=== PATIENT | female | born 1950 | race American Indian/Alaskan Native ===

== ENCOUNTER 2019-05-28 11:48 | Emergency (ER) | payer MEDICARE ==
[2019-05-28 12:02] VITALS: BP 164/97
--- NOTE | 2019-05-28 12:03 | Emergency Department Report ---
ED Recheck HPI - General Chief Complaint: Pain General Stated Complaint: DIABETIC PAIN Time Seen by Provider: 05/28/19 11:54 Source: patient Mode of arrival: Ambulatory Limitations: Physical Limitation - History of Present Illness MD Complaint: medication refill request Returns Today for: request for prescription Symptoms Since Prior Visit: worsening pain Context: ran out of medication Associated Symptoms: none - Related Data Previous Rx's Medication Instructions Recorded Last Taken Type DULoxetine [Cymbalta] 60 mg PO QDAY 15 Days #30 capsule 05/28/19 Unknown Rx Allergies Allergy/AdvReac Type Severity Reaction Status Date / Time latex Allergy Rash Verified 05/28/19 11:49 tape Allergy Rash Uncoded 05/28/19 11:49 ED Review of Systems ROS: Stated complaint: DIABETIC PAIN Other details as noted in HPI Constitutional: denies: chills Respiratory: denies: cough Cardiovascular: denies: chest pain, palpitations, edema, syncope Gastrointestinal: denies: abdominal pain, nausea, vomiting, diarrhea Musculoskeletal: other (nerve pain and needs refill on cymbalta) Skin: denies: rash Neurological: paresthesias, confusion. denies: headache, weakness, abnormal gait Psychiatric: denies: anxiety ED Past Medical Hx - Past Medical History Previous Medical History?: Yes Hx Diabetes: Yes Hx of Cancer: Yes Hx Arthritis: Yes (Rheumatoid) Hx Asthma: Yes Hx COPD: Yes Additional medical history: Fibromyalgia, Pulmonary problems - Surgical History Past Surgical History?: Yes Additional Surgical History: Stomach cancer surgery, Hysterectomy @ age 29,. Tubaligation, sinus surgery - Family History Family history: hypertension - Social History Smoking Status: Never Smoker Substance Use Type: None - Medications Home Medications: Home Medications Medication Instructions Recorded Confirmed Last Taken Type DULoxetine [Cymbalta] 60 mg PO QDAY 15 Days #30 capsule 05/28/19 Unknown Rx ED Physical Exam - General Limitations: Physical Limitation General appearance: alert, in no apparent distress - Head Head exam: Present: atraumatic, normocephalic - Eye Eye exam: Present: normal appearance, PERRL, EOMI Pupils: Present: normal accommodation - ENT ENT exam: Present: normal exam, normal orophraynx, mucous membranes moist - Neck Neck exam: Present: normal inspection, full ROM. Absent: tenderness - Respiratory Respiratory exam: Present: normal lung sounds bilaterally. Absent: respiratory distress - Cardiovascular Cardiovascular Exam: Present: regular rate, normal rhythm, normal heart sounds - GI/Abdominal GI/Abdominal exam: Present: soft. Absent: distended, tenderness - Extremities Exam Extremities exam: Present: normal inspection, full ROM, normal capillary refill. Absent: tenderness, pedal edema - Back Exam Back exam: Present: normal inspection, full ROM - Neurological Exam Neurological exam: Present: alert, oriented X3, normal gait - Psychiatric Psychiatric exam: Present: normal affect, normal mood - Skin Skin exam: Present: warm, dry, intact, normal color. Absent: rash ED Course Vital Signs 05/28/19 05/28/19 11:49 12:01 Temperature 98.7 F Pulse Rate 85 Respiratory 20 Rate Blood Pressure 173/107 Blood Pressure 164/97 [Right] O2 Sat by Pulse 98 Oximetry - Reevaluation(s) Reevaluation #1: 05/28/19 12:40 Patient stable and here for Cymbalta refill. ED Recheck MDM - Differential Diagnosis Prescription Refill(s) - Medical Decision Making Patient here for refill on meds and asymptomatic. Refill on cymbalta given with instructions to follow up with PCP at [facility] Critical care attestation.: If time is entered above; I have spent that time in minutes in the direct care of this critically ill patient, excluding procedure time. ED Disposition Clinical Impression: Encounter for medication refill Hypertension Qualifiers: Hypertension type: essential hypertension Qualified Code(s): I10 - Essential (primary) hypertension Disposition: TO HOME OR SELFCARE Is pt being admited?: No Does the pt Need Aspirin: No Condition: Stable Instructions: Duloxetine (By mouth), Diabetic Neuropathy (ED), Hypertension (ED) Additional Instructions: follow up with PCP in 2 days see referral for alternative pcp as requested. If condition worsen, return to ED Keep a log of blood pressure and bring to PCP visit Continue to take norvasc as prescribed by pcp Your blood pressure was mildly elevated today so, monitor and if greater that 170/100 go to closest ed Prescriptions: DULoxetine [Cymbalta] 60 mg PO QDAY 15 Days #30 capsule Referrals: GERTRUDIS BA MD [Primary Care Provider] - 05/30/19 LUDIVINA IBANEZ MD [Staff Physician] - 2-3 Days Time of Disposition: 12:43
== END 2019-05-28 13:13 | disposition home or self-care (01) ==
LOC: ED 11:48
DX: I10 Essential (primary) hypertension (principal); M79.7 Fibromyalgia; E11.9 Type 2 diabetes mellitus without complications; J44.9 Chronic obstructive pulmonary disease, unspecified; M06.9 Rheumatoid arthritis, unspecified; Z76.0 Encounter for issue of repeat prescription; Z85.9 Personal history of malignant neoplasm, unspecified; Z86.711 Personal history of pulmonary embolism; Z90.710 Acquired absence of both cervix and uterus; Z98.51 Tubal ligation status; Z79.899 Other long term (current) drug therapy; Z88.8 Allergy status to other drugs, medicaments and biological substances; Z91.040 Latex allergy status

== ENCOUNTER 2021-05-20 19:39 | Emergency (ER) | payer MEDICARE ==
[2021-05-20 20:38] LABS: Basophils % (Auto) 0.5 % (0.0-1.8); Eosinophils # (Auto) 0.2 K/mm3 (0.0-0.4); Eosinophils % (Auto) 3.3 % (0.0-4.3); Hematocrit 35.9 % (30.3-42.9); Hemoglobin 12.1 gm/dl (10.1-14.3); Lymphocytes # (Auto) 1.8 K/mm3 (1.2-5.4); Lymphocytes % (Auto) 26.9 % (13.4-35.0); Mean Corpuscular HGB Conc 34 % (30-34); Mean Corpuscular Volume 90 fl (79-97); Monocytes # (Auto) 0.4 K/mm3 (0.0-0.8); Monocytes % (Auto) 5.5 % (0.0-7.3); Platelet Count 384 K/mm3 (140-440); Red Blood Count 3.98 M/mm3 (3.65-5.03); Red Cell Distribution Width 13.6 % (13.2-15.2)
[2021-05-20 21:08] LABS: Alanine Aminotransferase 16 units/L (7-56); Albumin 4.1 g/dL (3.9-5); Blood Urea Nitrogen 15 mg/dL (7-17); Calcium 9.4 mg/dL (8.4-10.2); Hemolysis Index 3
[2021-05-20 21:10] LABS: BUN/Creatinine Ratio 21
--- NOTE | 2021-05-20 21:45 | XRay Report ---
CHEST 2 VIEWS INDICATION / CLINICAL INFORMATION: sob. COMPARISON: None available. FINDINGS: SUPPORT DEVICES: None. HEART / MEDIASTINUM: No significant abnormality. LUNGS / PLEURA: No significant pulmonary or pleural abnormality. No pneumothorax. ADDITIONAL FINDINGS: No significant additional findings. IMPRESSION: 1. No acute findings. Signer Name: Justice Brandon MD Signed: 05/20/2021 9:41 PM Workstation Name: [id number]
[2021-05-20] MEDS ORDERED: oxyCODONE /ACETAMINOPHEN 5-325MG TAB PO ONE (22:15)
--- NOTE | 2021-05-20 22:17 | Emergency Department Report ---
ED Fall HPI - General Chief Complaint: Fall Stated Complaint: FELL/LEGS/KNEE SWELLING Time Seen by Provider: 05/20/21 21:57 Source: patient Mode of arrival: Ambulatory Limitations: No Limitations - History of Present Illness Initial Comments: 70-year-old female with a past medical history of hypertension, rheumatoid arthritis, asthma, diabetes, fibromyalgia, stomach cancer in the past, and chronic back pain presents to the hospital complaining of 3 falls in the past week. Patient states he was ambulating with a cane and fell forward and was able to stop herself. She denies preceding lightheadedness or near syncope. Because of the falls she has had worsening lower back pain, bilateral hip pain, and right thigh pain. Patient also states she has bilateral lower extremity edema which is new. She denies chest pain or shortness of breath. She also denies head injury or LOC. Patient takes Percocet 10 mg for chronic back pain. She states she received an MRI of her spine approximately 2 weeks ago as part of her outpatient work-up. Patient denies urinary incontinence but states when she has to go to the bathroom she also urinates less because she cannot get to the bathroom in time. This has been ongoing for several months and is unchanged. Patient presents here today with a walker - Related Data Previous Rx's Medication Instructions Recorded Last Taken Type DULoxetine [Cymbalta] 60 mg PO QDAY 15 Days #30 capsule 05/28/19 Unknown Rx Allergies Allergy/AdvReac Type Severity Reaction Status Date / Time latex Allergy Rash Verified 05/28/19 11:49 tape Allergy Rash Uncoded 05/28/19 11:49 ED Review of Systems ROS: Stated complaint: FELL/LEGS/KNEE SWELLING Other details as noted in HPI Comment: All other systems reviewed and negative ED Past Medical Hx - Past Medical History Previous Medical History?: Yes Hx Diabetes: Yes Hx Arthritis: Yes (Rheumatoid) Hx Asthma: Yes Hx COPD: Yes (Pt denies) Additional medical history: Fibromyalgia - Surgical History Past Surgical History?: Yes Additional Surgical History: Stomach cancer surgery, Hysterectomy @ age 29,. Tubaligation, sinus surgery - Social History Smoking Status: Never Smoker Substance Use Type: None - Medications Home Medications: Home Medications Medication Instructions Recorded Confirmed Last Taken Type DULoxetine [Cymbalta] 60 mg PO QDAY 15 Days #30 capsule 05/28/19 Unknown Rx ED Physical Exam - General Limitations: No Limitations, Physical Limitation - Other Other exam information: General: No acute distress Head: Atraumatic Eyes: normal appearance ENT: Moist mucous membranes Neck: Normal appearance, no midline tenderness Chest: Clear to auscultation bilaterally CV: Regular rate and rhythm Abdomen: Soft, normal bowel sounds, nontender, nondistended, no rebound or guarding Back: Normal inspection, generalized lumbar midline tenderness and paraspinal muscle tenderness Extremity: Normal inspection, full range of motion, right anterior thigh muscular tenderness. Minimal pain with movement of bilateral hips. Bilateral knee swelling without warmth or erythema. Bilateral 1+ pitting leg edema without isolated calf tenderness or leg asymmetry. 2+ DP pulses Neuro: Alert O x 3, no facial asymmetry, speech clear, no gross motor sensory deficit Psych: Appropriate behavior Skin: No rash ED Course Vital Signs 05/20/21 20:12 Temperature 98.3 F Pulse Rate 89 Respiratory 19 Rate Blood Pressure 180/79 O2 Sat by Pulse 99 Oximetry ED Medical Decision Making - Lab Data Result diagrams: 05/20/21 20:22 05/20/21 20:22 Lab Results 05/20/21 05/20/21 Range/Units 20:22 20:22 WBC 6.6 (4.5-11.0) K/mm3 RBC 3.98 (3.65-5.03) M/mm3 Hgb 12.1 (10.1-14.3) gm/dl Hct 35.9 (30.3-42.9) % MCV 90 (79-97) fl MCH 30 (28-32) pg MCHC 34 (30-34) % RDW 13.6 (13.2-15.2) % Plt Count 384 (140-440) K/mm3 Lymph % (Auto) 26.9 (13.4-35.0) % [place] % (Auto) 5.5 (0.0-7.3) % Eos % (Auto) 3.3 (0.0-4.3) % Baso % (Auto) 0.5 (0.0-1.8) % Lymph # (Auto) 1.8 (1.2-5.4) K/mm3 [place] # (Auto) 0.4 (0.0-0.8) K/mm3 Eos # (Auto) 0.2 (0.0-0.4) K/mm3 Baso # (Auto) 0.0 (0.0-0.1) K/mm3 Seg Neutrophils % 63.8 (40.0-70.0) % Seg Neutrophils # 4.2 (1.8-7.7) K/mm3 Sodium 140 (137-145) mmol/L Potassium 3.9 (3.6-5.0) mmol/L Chloride 104.0 (98-107) mmol/L Carbon Dioxide 26 (22-30) mmol/L Anion Gap 14 mmol/L BUN 15 (7-17) mg/dL Creatinine 0.7 (0.6-1.2) mg/dL Estimated GFR > 60 ml/min BUN/Creatinine Ratio 21 % Glucose 144 H (65-100) mg/dL Calcium 9.4 (8.4-10.2) mg/dL Total Bilirubin 0.20 (0.1-1.2) mg/dL AST 14 (5-40) units/L ALT 16 (7-56) units/L Alkaline Phosphatase 117 (35-129) units/L Troponin T < 0.010 (0.00-0.029) ng/mL Total Protein 8.3 H (6.3-8.2) g/dL Albumin 4.1 (3.9-5) g/dL Albumin/Globulin Ratio 1.0 % - EKG Data -: EKG Interpreted by Pr EKG shows normal: sinus rhythm, intervals (qtc 435), QRS complexes (qrsd 109), ST-T waves (no stemi/t wve inv) Rate: normal (77) - Radiology Data Radiology results: report reviewed (Chest x-ray: No acute finding) CHEST 2 VIEWS INDICATION / CLINICAL INFORMATION: sob. COMPARISON: None available. FINDINGS: SUPPORT DEVICES: None. HEART / MEDIASTINUM: No significant abnormality. LUNGS / PLEURA: No significant pulmonary or pleural abnormality. No pneumothorax. ADDITIONAL FINDINGS: No significant additional findings. IMPRESSION: 1. No acute findings LUMBAR SPINE 2 VIEWS INDICATION / CLINICAL INFORMATION: pain after fall, chronic pain. COMPARISON: None available. FINDINGS: VERTEBRAE: No acute fracture. No significant malalignment. DISC SPACES / FACET JOINTS:There is degenerative facet disease at L5-S1. PARASPINAL SOFT TISSUES:No significant abnormality. ADDITIONAL FINDINGS: None. BILATERAL HIP 2 VIEW(S) INDICATION / CLINICAL INFORMATION: pain after fall COMPARISON: None available. FINDINGS: BONES / JOINT(S): No acute fracture or subluxation. No significant arthritis. SOFT TISSUES: No significant abnormality. ADDITIONAL FINDINGS: None. DUPLEX DOPPLER LOWER EXTREMITY VEINS, BILATERAL INDICATION / CLINICAL INFORMATION: b/l leg swelling. TECHNIQUE: Duplex doppler imaging was performed through the veins of both lower extremities using venous compression and other maneuvers. COMPARISON: None available. FINDINGS: RIGHT COMMON FEMORAL VEIN: Negative. RIGHT FEMORAL VEIN: Negative. RIGHT POPLITEAL VEIN: Negative. RIGHT CALF VEINS: Negative. LEFT COMMON FEMORAL VEIN: Negative. LEFT FEMORAL VEIN: Negative. LEFT POPLITEAL VEIN: Negative. LEFT CALF VEINS: Negative. ADDITIONAL FINDINGS: None. IMPRESSION: 1. No sonographic evidence for DVT in either lower extremity. - Medical Decision Making 70-year female presents to the hospital after having several falls this week. Patient has a history of chronic pain including back pain, joint pain and swelling, and requiring a cane and sometimes a walker to ambulate. Patient has a pain specialist and is undergoing outpatient work-up for ongoing chronic back pain. No reports of increased weakness or urinary incontinence. Patient able to ambulate with a walker in the ED. X-rays do not reveal any acute abnormality. Bilateral Dopplers for leg edema do not reveal acute DVT. No chest x-ray findings of CHF and no laboratory findings of liver or renal failure. Patient decided p.o. Percocet here in the ED. Patient will be d ischarged to follow-up with her physicians for continued outpatient work-up Critical Care Time: No Critical care attestation.: If time is entered above; I have spent that time in minutes in the direct care of this critically ill patient, excluding procedure time. ED Disposition Clinical Impression: Frequent falls, Chronic pain, Bilateral edema of lower extremity Disposition: 01 HOME / SELF CARE / HOMELESS Is pt being admited?: No Does the pt Need Aspirin: No Condition: Stable Instructions: Fall Prevention in the Home, Adult, [id number], Chronic Pain, Adult, Edema Additional Instructions: Continue current medications. Follow-up with your doctor or doctor/clinic provided. Return if symptoms worsen as indicated by your discharge instructions. Referrals: PRIMARY CARE, [Primary Care Provider] - 3-5 Days
--- NOTE | 2021-05-20 23:13 | XRay Report ---
LUMBAR SPINE 2 VIEWS INDICATION / CLINICAL INFORMATION: pain after fall, chronic pain. COMPARISON: None available. FINDINGS: VERTEBRAE: No acute fracture. No significant malalignment. DISC SPACES / FACET JOINTS:There is degenerative facet disease at L5-S1. PARASPINAL SOFT TISSUES:No significant abnormality. ADDITIONAL FINDINGS: None. Signer Name: Devon Hoover DO Signed: 05/20/2021 11:09 PM Workstation Name: [id number]
--- NOTE | 2021-05-20 23:13 | XRay Report ---
BILATERAL HIP 2 VIEW(S) INDICATION / CLINICAL INFORMATION: pain after fall COMPARISON: None available. FINDINGS: BONES / JOINT(S): No acute fracture or subluxation. No significant arthritis. SOFT TISSUES: No significant abnormality. ADDITIONAL FINDINGS: None. Signer Name: Devon Hoover DO Signed: 05/20/2021 11:08 PM Workstation Name: [id number]
--- NOTE | 2021-05-21 00:07 | Vascular Lab Report ---
DUPLEX DOPPLER LOWER EXTREMITY VEINS, BILATERAL INDICATION / CLINICAL INFORMATION: b/l leg swelling. TECHNIQUE: Duplex doppler imaging was performed through the veins of both lower extremities using rajinder ous compression and other maneuvers. COMPARISON: None available. FINDINGS: RIGHT COMMON FEMORAL VEIN: Negative. RIGHT FEMORAL VEIN: Negative. RIGHT POPLITEAL VEIN: Negative. RIGHT CALF VEINS: Negative. LEFT COMMON FEMORAL VEIN: Negative. LEFT FEMORAL VEIN: Negative. LEFT POPLITEAL VEIN: Negative. LEFT CALF VEINS: Negative. ADDITIONAL FINDINGS: None. IMPRESSION: 1. No sonographic evidence for DVT in either lower extremity. Signer Name: Devon Hoover DO Signed: 05/21/2021 12:03 AM Workstation Name: [id number]
[2021-05-21 01:58] VITALS: BP 141/95
--- NOTE | 2021-05-21 11:03 | Electrocardiograph Report ---
[facility] Test Date: 2021-05-20 Test Time: 20:51:47 Pat Name: MARTINA HANSEN Department: Room: Gender: F [employer] Engineer: [id number] : 1950 Requested By: SEGUN YI Order Number: [id number] Reading MD: Moses Moy Measurements Intervals [place] Rate: 77 P: 30 ND: 149 QRS: -9 QRSD: 109 T: 41 QT: 384 QTc: 435 Interpretive Statements Sinus rhythm No previous ECG available for comparison Electronically Signed On 05-21-2021 11:03:14 EDT by Moses Moy
== END 2021-05-21 01:53 | disposition home or self-care (01) ==
LOC: ED 19:39
DX: G89.29 Other chronic pain (principal); M54.50 Low back pain, unspecified; R60.0 Localized edema; E11.8 Type 2 diabetes mellitus with unspecified complications; M19.90 Unspecified osteoarthritis, unspecified site; J45.909 Unspecified asthma, uncomplicated; J44.9 Chronic obstructive pulmonary disease, unspecified; M79.7 Fibromyalgia; Z91.81 History of falling; Z90.710 Acquired absence of both cervix and uterus; Z98.890 Other specified postprocedural states; Z91.040 Latex allergy status; Z91.048 Other nonmedicinal substance allergy status
CPT/HCPCS: 36415; 71046; 72100; 73521; 80053; 84484; 85025; 93005; 93970; 99284

== ENCOUNTER 2022-03-05 12:29 | Emergency (ER) | payer MEDICARE ==
[2022-03-05 13:04] VITALS: BP 160/89
[2022-03-05] MEDS ORDERED: dexAMETHasone 4 MG/ML VIAL IM ONE (13:37)
--- NOTE | 2022-03-05 13:37 | Emergency Department Report ---
ED General Adult HPI - General Chief complaint: Fall Stated complaint: MULTIPLE FALLS PUI?: No Time Seen by Provider: 03/05/22 13:04 Source: patient Mode of arrival: Ambulatory Limitations: No Limitations - History of Present Illness Initial comments: 71 yo comes to ER with b knee pain. This pain is chronic in nature. No new fall or trauma. She has fallen in the past which has caused her a/c pain. PT is on pain meds at home but comes to ER requesting decadron IM because this is all she finds helps her pain when her knees "flare." Pt does have hx arthritis/fibromyalgia No fever or chills. no cp no sob -: Gradual, days(s) Location: lower extremity Severity scale (0 -10): 3 Quality: aching Consistency: constant Improves with: immobilization Worsens with: movement Associated Symptoms: denies other symptoms - Related Data Previous Rx's Medication Instructions Recorded Last Taken Type DULoxetine [Cymbalta] 60 mg PO QDAY 15 Days #30 capsule 05/28/19 Unknown Rx methylPREDNISolone [Medrol 4MG 4 mg PO FS #1 tab.ds.pk 03/05/22 Unknown Rx DOSEPAK (21 tabs)] Allergies Allergy/AdvReac Type Severity Reaction Status Date / Time latex Allergy Rash Verified 03/05/22 13:04 tape Allergy Rash Uncoded 03/05/22 13:04 ED Review of Systems ROS: Stated complaint: MULTIPLE FALLS Other details as noted in HPI Comment: All other systems reviewed and negative ED Past Medical Hx - Past Medical History Previous Medical History?: Yes Hx Diabetes: Yes Hx Arthritis: Yes (Rheumatoid) Hx Asthma: Yes Hx COPD: Yes (Pt denies) Additional medical history: Fibromyalgia - Surgical History Past Surgical History?: Yes Additional Surgical History: Stomach cancer surgery, Hysterectomy @ age 29,. Tubaligation, sinus surgery - Family History Family history: no significant - Social History Smoking Status: Never Smoker Substance Use Type: None - Medications Home Medications: Home Medications Medication Instructions Recorded Confirmed Last Taken Type DULoxetine [Cymbalta] 60 mg PO QDAY 15 Days #30 capsule 05/28/19 Unknown Rx methylPREDNISolone [Medrol 4MG 4 mg PO FS #1 tab.ds.pk 03/05/22 Unknown Rx DOSEPAK (21 tabs)] ED Physical Exam - General Limitations: No Limitations General appearance: alert, in no apparent distress - Head Head exam: Present: atraumatic, normocephalic - Eye Eye exam: Present: normal appearance - ENT ENT exam: Present: mucous membranes moist - Neck Neck exam: Present: normal inspection - Respiratory Respiratory exam: Present: normal lung sounds bilaterally. Absent: respiratory distress - Cardiovascular Cardiovascular Exam: Present: regular rate, normal rhythm. Absent: systolic murmur, diastolic murmur, rubs, gallop - GI/Abdominal GI/Abdominal exam: Present: soft, normal bowel sounds - Extremities Exam Extremities exam: Present: normal inspection - Back Exam Back exam: Present: normal inspection - Neurological Exam Neurological exam: Present: alert, oriented X3 - Psychiatric Psychiatric exam: Present: normal affect, normal mood - Skin Skin exam: Present: warm, dry, intact, normal color. Absent: rash ED Course Vital Signs 03/05/22 13:02 Temperature 98.6 F Pulse Rate 90 Respiratory 18 Rate Blood Pressure 160/89 [Left] O2 Sat by Pulse 100 Oximetry ED Medical Decision Making - Medical Decision Making Vital Signs 03/05/22 13:02 Temperature 98.6 F Pulse Rate 90 Respiratory 18 Rate Blood Pressure 160/89 [Left] O2 Sat by Pulse 100 Oximetry medicated with decadron 8 mg IM pt ambulatory neuro vasc intact plus 2 DP bilateral pain reproducible with movement dc home with dc plan of care including diet, meds, activity and follow up. Pt verbalizes understanding of plan of care. - Differential Diagnosis a/c pain Critical care attestation.: If time is entered above; I have spent that time in minutes in the direct care of this critically ill patient, excluding procedure time. ED Disposition Clinical Impression: Knee pain, Chronic pain Disposition: 01 HOME / SELF CARE / HOMELESS Is pt being admited?: No Does the pt Need Aspirin: No Condition: Stable Instructions: Joint Pain, [id number] Additional Instructions: FOLLOW UP WITH [facility]TH[facility] MED ORDERED TODAY CONTINUE HOME MEDS Prescriptions: methylPREDNISolone [Medrol 4MG DOSEPAK (21 tabs)] 4 mg PO FS #1 tab.ds.pk Referrals: BARTOLO RAMIREZ MD [Staff Physician] - 3-5 Days Forms: Work/School Release Form(ED) Time of Disposition: 13:47
== END 2022-03-05 15:04 | disposition home or self-care (01) ==
LOC: ED 12:29
DX: G89.29 Other chronic pain (principal); M25.561 Pain in right knee; M25.562 Pain in left knee; E11.9 Type 2 diabetes mellitus without complications; M19.90 Unspecified osteoarthritis, unspecified site; J44.9 Chronic obstructive pulmonary disease, unspecified; M79.7 Fibromyalgia; Z90.710 Acquired absence of both cervix and uterus; Z98.51 Tubal ligation status; Z91.040 Latex allergy status; Z79.899 Other long term (current) drug therapy
CPT/HCPCS: 96372; 99282; J1100

== ENCOUNTER 2022-04-02 13:33 | Emergency (ER) | payer MEDICARE ==
--- NOTE | 2022-04-02 15:41 | XRay Report ---
CHEST 2 VIEWS INDICATION / CLINICAL INFORMATION: Syncope. COMPARISON: 05/20/21 FINDINGS: SUPPORT DEVICES: None. HEART / MEDIASTINUM: No significant abnormality. LUNGS / PLEURA: No significant pulmonary or pleural abnormality. No pneumothorax. ADDITIONAL FINDINGS: No significant additional findings. IMPRESSION: 1. No acute findings. Signer Name: Bg Ramirez MD Signed: 04/02/2022 3:36 PM Workstation Name: [id number]
[2022-04-02 17:25] LABS: Basophils % (Auto) 0.4 % (0.0-1.8); Eosinophils # (Auto) 0.1 K/mm3 (0.0-0.4); Eosinophils % (Auto) 1.2 % (0.0-4.3); Hematocrit 31.8 % (30.3-42.9); Hemoglobin 10.6 gm/dl (10.1-14.3); Lymphocytes # (Auto) 1.8 K/mm3 (1.2-5.4); Lymphocytes % (Auto) 28.9 % (13.4-35.0); Mean Corpuscular HGB Conc 34 % (30-34); Mean Corpuscular Volume 87 fl (79-97); Monocytes # (Auto) 0.3 K/mm3 (0.0-0.8); Monocytes % (Auto) 4.9 % (0.0-7.3); Platelet Count 437 K/mm3 (140-440); Red Blood Count 3.65 M/mm3 (3.65-5.03)
[2022-04-02 17:53] LABS: Creatine Kinase MB 1.4 ng/mL (0.0-4.0)
[2022-04-02 17:56] LABS: Alanine Aminotransferase 14 units/L (7-56); Albumin 4.1 g/dL (3.9-5); Blood Urea Nitrogen 15 mg/dL (7-17); Calcium 9.3 mg/dL (8.4-10.2); Hemolysis Index 2
[2022-04-02 17:59] LABS: BUN/Creatinine Ratio 21
[2022-04-03 04:36] VITALS: BP 175/87
[2022-04-03] MEDS ORDERED: dexAMETHasone 4 MG/ML VIAL IM ONE (13:16)
[2022-04-03] MEDS ORDERED: oxyCODONE /ACETAMINOPHEN 5-325MG TAB PO ONE (13:16)
--- NOTE | 2022-04-03 13:18 | Emergency Department Report ---
ED General Adult HPI - General Chief complaint: Syncope Stated complaint: HIP PAIN PUI?: No Time Seen by Provider: 04/03/22 13:15 Source: patient Mode of arrival: Ambulatory Limitations: No Limitations - History of Present Illness Initial comments: 71 YO HAS NOW BEEN IN ER 24 HOURS - IN WAITING ROOM. SHE HAS A/C BACK PAIN SHE HAD EPIDURAL SCHEDULED BUT TANGELA CANCELLED IT SHE IS ON PERCOCET AT HOME FOR THE PAIN SHE INITALLY REFUSED TO COME TO FAST TRACK SHE STATES SHE HAS BEEN HERE 2 OTHER TIMES AND SHE WANTED TO GO TO MAIN PER DR JESSICA SHE NEEDED TO GO TO [facility] OR GO A[facility]; PT AGREED WITH [facility] NO CP NO SOB NO FEVER/CHILLS SHE IS IN HER USUAL STATE OF HEALTH AND IS FRUSTRATED WITH HER BACLK AND LEG PAIN AMBULATORY AND NEURO INTACT -: Gradual, year(s) Severity scale (0 -10): 10 Associated Symptoms: denies other symptoms - Related Data Previous Rx's Medication Instructions Recorded Last Taken Type DULoxetine [Cymbalta] 60 mg PO QDAY 15 Days #30 capsule 05/28/19 Unknown Rx predniSONE [Deltasone] 20 mg PO DAILY #5 tablet 04/03/22 Unknown Rx Allergies Allergy/AdvReac Type Severity Reaction Status Date / Time latex Allergy Rash Verified 04/02/22 14:52 tape Allergy Rash Uncoded 04/02/22 14:52 ED Review of Systems ROS: Stated complaint: HIP PAIN Other details as noted in HPI Comment: All other systems reviewed and negative ED Past Medical Hx - Past Medical History Previous Medical History?: Yes Hx Diabetes: Yes Hx Arthritis: Yes (Rheumatoid) Hx Asthma: Yes Hx COPD: Yes (Pt denies) Additional medical history: Fibromyalgia - Surgical History Past Surgical History?: Yes Additional Surgical History: Stomach cancer surgery, Hysterectomy @ age 29,. Tubaligation, sinus surgery - Family History Family history: no significant - Social History Smoking Status: Never Smoker Substance Use Type: None - Medications Home Medications: Home Medications Medication Instructions Recorded Confirmed Last Taken Type DULoxetine [Cymbalta] 60 mg PO QDAY 15 Days #30 capsule 05/28/19 Unknown Rx predniSONE [Deltasone] 20 mg PO DAILY #5 tablet 04/03/22 Unknown Rx ED Physical Exam - General Limitations: No Limitations General appearance: alert, in no apparent distress - Head Head exam: Present: atraumatic, normocephalic - Eye Eye exam: Present: normal appearance - ENT ENT exam: Present: mucous membranes moist - Neck Neck exam: Present: normal inspection - Respiratory Respiratory exam: Present: normal lung sounds bilaterally. Absent: respiratory distress - Cardiovascular Cardiovascular Exam: Present: regular rate, normal rhythm. Absent: systolic murmur, diastolic murmur, rubs, gallop - GI/Abdominal GI/Abdominal exam: Present: soft, normal bowel sounds - Extremities Exam Extremities exam: Present: normal inspection - Back Exam Back exam: Present: normal inspection - Neurological Exam Neurological exam: Present: alert, oriented X3 - Psychiatric Psychiatric exam: Present: normal affect, normal mood - Skin Skin exam: Present: warm, dry, intact, normal color. Absent: rash ED Course Vital Signs 04/02/22 04/03/22 14:48 04:35 Temperature 98.5 F 97.9 F Pulse Rate 83 80 Respiratory 18 16 Rate Blood Pressure 175/87 Blood Pressure 184/95 [Left] O2 Sat by Pulse 99 97 Oximetry ED Medical Decision Making - Lab Data Result diagrams: 04/02/22 16:10 04/02/22 16:10 - EKG Data -: EKG Interpreted by Ut EKG shows normal: sinus rhythm Rate: normal - EKG Data When compared to previous EKG there are: no significant change Interpretation: no acute changes - Radiology Data Radiology results: report reviewed, image reviewed - Medical Decision Making Lab Results 04/02/22 04/02/22 Range/Units 16:10 16:10 WBC 6.4 (4.5-11.0) K/mm3 RBC 3.65 (3.65-5.03) M/mm3 Hgb 10.6 (10.1-14.3) gm/dl Hct 31.8 (30.3-42.9) % MCV 87 (79-97) fl MCH 29 (28-32) pg MCHC 34 (30-34) % RDW 15.0 (13.2-15.2) % Plt Count 437 (140-440) K/mm3 Lymph % (Auto) 28.9 (13.4-35.0) % [facility] [place] [facility] % (Auto) 4.9 (0.0-7.3) % Eos % (Auto) 1.2 (0.0-4.3) % Baso % (Auto) 0.4 (0.0-1.8) % Lymph # (Auto) 1.8 (1.2-5.4) K/mm3 [facility] # (Auto) 0.3 (0.0-0.8) K/mm3 Eos # (Auto) 0.1 (0.0-0.4) K/mm3 Baso # (Auto) 0.0 (0.0-0.1) K/mm3 Seg Neutrophils % 64.6 (40.0-70.0) % Seg Neutrophils # 4.1 (1.8-7.7) K/mm3 Sodium 140 (137-145) mmol/L Potassium 4.4 (3.6-5.0) mmol/L Chloride 102.3 (98-107) mmol/L Carbon Dioxide 27 (22-30) mmol/L Anion Gap 15 mmol/L BUN 15 (7-17) mg/dL Creatinine 0.7 (0.6-1.2) mg/dL Estimated GFR > 60 ml/min BUN/Creatinine Ratio 21 % Glucose 191 H (65-100) mg/dL Calcium 9.3 (8.4-10.2) mg/dL Total Bilirubin 0.20 (0.1-1.2) mg/dL AST 10 (5-40) units/L ALT 14 (7-56) units/L Alkaline Phosphatase 111 (35-129) units/L Total Creatine Kinase 62 (30-135) units/L CK-MB (CK-2) 1.4 (0.0-4.0) ng/mL CK-MB (CK-2) Rel Index 2.2 (0-4) Troponin T < 0.010 (0.00-0.029) ng/mL NT-Pro-B Natriuret Pep 9.22 (0-900) pg/mL Total Protein 7.1 (6.3-8.2) g/dL Albumin 4.1 (3.9-5) g/dL Albumin/Globulin Ratio 1.4 % Vital Signs 04/02/22 04/03/22 14:48 04:35 Temperature 98.5 F 97.9 F Pulse Rate 83 80 Respiratory 18 16 Rate Blood Pressure 175/87 Blood Pressure 184/95 [Left] O2 Sat by Pulse 99 97 Oximetry MEDICATED WITH [facility] PT EDUCATED ON HER CHRONIC PAIN MANAGEMENT DC HOME WITH DC PLAN OF CARE INCLUDING ASKING [employer] TO MOVE HER EPIDURAL UP. PT NEURO INTACT AMBULATORY NAD TAKING PO DC HOME WITH DC PLAN OF CARE INCLUDING DIET, MEDS, ACTIVITY AND FOLLOW UP - Differential Diagnosis A/C PAIN Critical care attestation.: If time is entered above; I have spent that time in minutes in the direct care of this critically ill patient, excluding procedure time. ED Disposition Clinical Impression: Chronic pain, Fibromyalgia, Drug-seeking behavior Disposition: 01 HOME / SELF CARE / HOMELESS Is pt being admited?: No Does the pt Need Aspirin: No Condition: Stable Instructions: Opioid Pain Medicine Management Additional Instructions: follow up with TANGELA WE DISCUSSED MEDS ORDERED TODAY Prescriptions: predniSONE [Deltasone] 20 mg PO DAILY #5 tablet Referrals: LUDIVINA IBANEZ MD [Staff Physician] - 3-5 Days Time of Disposition: 13:17
--- NOTE | 2022-04-04 13:25 | Electrocardiograph Report ---
[facility] Test Date: 2022-04-02 Test Time: 14:59:25 Pat Name: MARTINA HANSEN Department: Room: Gender: F [employer]: SUZAN : 1950 Requested By: ED DOC Order Number: [id number] Reading MD: Jose Kitchen Measurements Intervals [place] Rate: 78 P: 29 MA: 156 QRS: -2 QRSD: 106 T: 51 QT: 387 QTc: 440 Interpretive Statements Sinus rhythm Compared to ECG 05/20/2021 20:51:47 No significant changes Electronically Signed On 04-04-2022 13:25:13 EDT by Jose Kitchen
== END 2022-04-03 14:15 | disposition home or self-care (01) ==
LOC: ED 13:33
DX: M79.7 Fibromyalgia (principal); G89.29 Other chronic pain; Z76.5 Malingerer [conscious simulation]; Z91.040 Latex allergy status; E11.9 Type 2 diabetes mellitus without complications; J45.909 Unspecified asthma, uncomplicated
CPT/HCPCS: 36415; 71046; 80053; 82550; 82553; 83880; 84484; 85025; 93005; 96372; 99284; J1100; 99282